=== PATIENT | male | born 1945 | race Caucasian/White ===

== ENCOUNTER 2023-11-04 12:52 | Outpatient (AMB) | payer OTHER, SELFPAY ==
--- NOTE | 2023-11-04 12:57 | HO.SPINEOV ---
Intake Visit Reasons: severe back pain Intake Note: Mr. Milligan is here today c/o Low back pain with numbness on both legs making it difficult to walk. 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 He reports that on September 21 without any inciting incident he began experiencing severe low back pain with shooting pains into his right lower extremity. He ended up seeing a provider who had previously done knee injections on him and had a few injections completed in his right hip. These cortisone injections provided relief of the shooting pain down his right leg. Since then he has predominantly had low back pain, but still experiences some ?numbness? in his anterior thighs bilaterally. 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 He states he did try a course of oxycodone that was provided to him by the emergency department, however this caused him to have quite a significant stool impaction. After having the stool impaction flushed out in the emergency department, he states he has had difficulty with ambulation and has been using a walker. He apparently was walking completely fine prior to this. He comes in today seeking a solution for his continued back pain. PMH: Hypertension, prediabetes with an A1c of 6.2. Bilateral knee replacements. Cholecystectomy. Social hx: The patient does not smoke, reports no substance use. Medications: Amlodipine, atorvastatin, acetaminophen. Allergies: NKDA. Physical exam: The patient has 5/5 strength in his upper and lower extremities. He reports hypoesthesia over his bilateral anterior thighs. He is unable to relax his upper/lower extremities for reflex testing, he states this is due to back pain. He ambulates with extreme caution taking very slow/shaky steps. No obviously antalgic gait, does not favor either side. No real evidence of spasticity in his gait. (-) Harvey's, (-) clonus, (-) straight leg raise, (-) Babinski bilaterally. Imaging review: MRI of the lumbar spine completed at [facility] shows moderate/severe right-sided L4-5 foraminal stenosis causing compression of the right L5 nerve root. CT scan of the lumbar spine shows obvious signs of instability or subluxation. Impression: Hoang is a pleasant 78-year-old male who comes in today with a chief complaint of low back pain. His radiculopathy has resolved. He still has hypoesthesia over his bilateral anterior thighs. He has a gait disturbance that has caused him to needs to utilize a walker since his recent hospital admission to have a stool impaction flushed out. His MRI imaging does not support a severe low back pain/ataxia diagnosis. His low back pain may be coming from the stenosis at L4-5, but it is less likely given that this type of impingement is usually seen in individuals with significant leg pain, not isolated low back pain. For this reason I sent the patient for a set of dynamic lumbar spine x-rays to ensure there was no subluxation instability. This also was clear. After discussion at some length Hoang would like to proceed with a referral to physiatry/pain management as he feels this could be beneficial for him. He lives somewhat locally so I will refer him [place] [facility] [place]. Thank you for allowing us to care for your patient. The total time spent with this visit with this patient was 45 minutes reviewing history, physical exam, MRI imaging review, and implementation of treatment plan or further diagnostic testing Kimo Reina MD,PhD [facility] Orders: Orders XR lumbar spine 4V min Today M54.50 - Low back pain, unspecified Referrals Pain Management Referral M54.50 - Low back pain, unspecified Coding Level of Care Code Global (85004) Diagnoses Lumbago M54.50
== END 2023-11-04 14:01 | disposition home or self-care (01) ==
PROVIDERS: PCP Family Medicine; Visit Provider Physician Assistant
DX: M54.50 Low back pain, unspecified (principal)
CPT/HCPCS: 99204

== ENCOUNTER 2023-11-04 12:52 | Outpatient (REF) | payer OTHER, SELFPAY ==
--- NOTE | ~2023-11-04 | XR_ITS ---
EXAMINATION: XR LUMBAR SPINE CLINICAL INFORMATION: Low back pain. COMPARISON: None available. TECHNIQUE: 4 views of the lumbar spine. FINDINGS: Slight levoscoliosis. Surgical clips right upper quadrant. 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 Advanced multilevel lumbar spondylosis with multilevel loss of disc space height most notable at L5-S1. Straightening of the normal lumbar lordosis. Atherosclerotic aortic calcifications. XR/XR lumbar spine 4V min IMPRESSION: Advanced multilevel lumbar spondylosis most notable at L5-S1. Electronically signed by: Stephenie Gonzalez MD 12/03/2023 07:26 AM EDT
== END 2023-11-04 12:53 | disposition home or self-care (01) ==
LOC: HO.HOSX 12:52
PROVIDERS: PCP Family Medicine; Visit Provider Physician Assistant
DX: M54.50 Low back pain, unspecified (principal); M47.817 Spondylosis without myelopathy or radiculopathy, lumbosacral region
CPT/HCPCS: 72110

== ENCOUNTER 2023-11-14 09:16 | Outpatient (AMB) | payer OTHER, SELFPAY ==
[2023-11-14 09:26] VITALS: BP 109/73; PULSE 102; O2SAT 97; BMI 25.5
--- NOTE | 2023-11-14 09:26 | A.OFFVIS_ITS ---
Vital Signs 3 11/14/23 09:26 Height 5 ft 7 in Weight 163 lb BMI 25.5 BP 109/73 Blood Pressure Location Lt brachial Position Sitting Pulse 102 H Pulse Source Pulse Oximeter Pulse Oximetry (%) 97 Oxygen Delivery Method Room Air Intake Visit Reasons: Low back pain, unspecified Allergies No Known Allergies Allergy (Verified 11/14/23 11:01) Medication List - Last Reconciled 11/14/23 by Ileana Olguin acetaminophen 650 mg PO Q6H PRN amlodipine 10 mg PO DAILY atorvastatin 80 mg PO DAILY ibuprofen 600 mg PO Q8H PRN HPI Comments Details: Hoang is a very pleasant 78-year-old male who presented to the office today, accompanied by his , for evaluation management of his lower back pain and bilateral lower extremity weakness Patient was evaluated in the neuro spine office 10 days ago and referred here for evaluation. Recent MRI and CT scan results were reviewed though images were available at the time He reports under live 1st he noticed some right lower back pain with radiation down the right leg. He was evaluated at a walk-in clinic and given a prednisone taper without relief. One week later he saw his PCP he was given a stronger prednisone taper which still did not provide any relief. He was evaluated by Neurosurgery 10 days ago and referred here for evaluation and management. Reports over the last 3 weeks pain has persisted but more concerning the numbness and weakness of the lower extremities has progressed. Prior to this pain starting patient was very active, playing squash and rowing. He is now dependent on a walker which he can ambulate with heavy assistance Significant weakness of both lower extremities, though right is worse than left. He also reports new complaint of urinary retention, he is able to void but not completely empty his bladder. Plan was for physical therapy to start on Friday. Pain today is rated as 7/10 He has been taking ibuprofen Tylenol without improvement of his symptoms. In terms of muscle damage condition is described as tingling, squeezing, radiating, exhausting, dull, sore, hurting, aching, heavy, numb Pain is negatively impacting patient's sleep, ability to permanent activities of daily living, ability to care for himself, ability to function normally, mood, recreational activity, relationships with people Review of Systems Const All systems reviewed & are unremarkable except as noted in HPI and below Physical Exam Vital Signs: Last Vital Signs Pulse 102 H 11/14/23 09:26 BP 109/73 11/14/23 09:26 Pulse Ox 97 11/14/23 09:26 Oxygen Delivery Method Room Air 11/14/23 09:26 BMI result Body Mass Index 25.5 General: awake, alert, oriented. Answers questions appropriately. Flat affect. Skin: warm, dry, intact HEENT: Normocephalic. Hearing intact. Cardiac: External chest normal in appearance. Respiratory: No cough, audible wheezing or stridor. Abdomen: without gross distension. MS: No obvious swelling or deformities. Unable to transition sit to stand without significant assistance Ambulating with walker with significant difficulty, heavily dependent on upper body strength and walker for ambulation 3/5 bilateral lower extremity strength 5/5 bilateral upper extremity strength SLR positive on the right Neurological: Oriented to person, place, time and situation. Thought process intact. Ambulating with a walker Psychiatric: Appropriate mood and affect. Good judgment and insight. Results Reviewed Results Reviewed: 10/29/23 MRI LS W + W/O contrast 10/28/23 CT lumbar spine w/o contrast Assessment & Plan Assessment & Plan (1) Weakness of both lower extremities: Code(s): R29.898 - Other symptoms and signs involving the musculoskeletal system Category: Medical (2) Lumbago: Code(s): M54.50 - Low back pain, unspecified Category: Medical Plan Hoang presented to the office today, accompanied by his , for evaluation and management of his lower back pain and bilateral lower extremity weakness. Upon examination patient with significantly worsening neurological deficits compared to the exam that was documented on most recent neuro spine visit 11/04/23. New complaints of urinary retention and increasing weakness of his lower extremities. Very difficult for him to walk even with a walker, 2 months ago he was fully functional and athletic. While patient was in the office a call was placed to SARA Montes De Oca at neuro spine office to discuss the new physical exam findings and neurological decline. He agreed to see the patient in the office immediately, patient was assisted down to their office for evaluation. Care was deferred to neuro spine, patient will follow up here once cleared by their office. Coding Level of Care Code New Pt Level 4 (39009) Diagnoses Weakness of both lower extremities R29.898 Lumbago M54.50
== END 2023-11-14 10:15 | disposition home or self-care (01) ==
PROVIDERS: PCP Family Medicine; Visit Provider Registered Nurse Emergency
DX: R29.898 Other symptoms and signs involving the musculoskeletal system (principal); M54.50 Low back pain, unspecified
CPT/HCPCS: 99204; 99214

== ENCOUNTER → 2023-11-14 09:16 | Outpatient (BNVA) | payer OTHER, SELFPAY | PROVIDERS: PCP Family Medicine; Visit Provider Registered Nurse Emergency ==

== ENCOUNTER 2023-11-14 10:20 | Outpatient (AMB) | payer OTHER, SELFPAY ==
--- NOTE | 2023-11-14 10:49 | A.SPINEOV_ITS ---
Intake Visit Reasons: f/up Intake Note: Mr. Milligan is here today to F/u after pain management. 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 I received a call from Margret horton and the pain management office about concerning symptoms that have developed since the patient last saw Kimo SORIA. In the interim since his last visit, he started to develop numbness on both of his thighs anteriorly, and has hardly been able to stand up and walk. He has significant weakness of both lower extremities in his also now starting to get urinary retention. He can void but he can not completely empty his bladder. He has no loss of sensation or incontinence however. Denies any symptoms in his arms. He still does have some shooting pain down his right leg but the development of the difficulty wa lking in the numbness has been the most concerning thing to him. On exam, he is here with a walker and was unable to stand up out of a chair on his own. He was unable to get up on the examining table without significant help. He almost stumbled and fell trying to get off the examining table. Has 3/5 weakness of his bilateral iliopsoas. Quadriceps strength is full. He does have dorsiflexion weakness in the tibialis I would rate that is 4/5. He has artificial knees in both knees but absent reflexes at the patella and the Achilles. Upper extremity strength and reflexes are normal. No Harvey's sign. I did not have the disc to review of the lumbar imaging done at [facility], but the report suggests there is only mild stenosis at L4-5. That would not explain rapidly progressive paraparesis, numbness and bladder dysfunction. The patient needs an urgent thoracic and cervical MRI to rule out myelopathy or myelitis. Total amount of time spent in this visit was 20 minutes in discussion of symptoms, previous lumbar imaging results and subsequent plan of care Anoop Reina MD,PhD [facility] Coding Level of Care Code Est Pt Level 3 (06104) Diagnoses Weakness of both lower extremities R29.898
== END 2023-11-14 12:04 | disposition home or self-care (01) ==
PROVIDERS: PCP Family Medicine; Visit Provider Physician Assistant
DX: R29.898 Other symptoms and signs involving the musculoskeletal system (principal)
CPT/HCPCS: 99213